=== PATIENT | female | born 1985 | race Caucasian/White ===

== ENCOUNTER 2020-06-20 10:07 | Emergency (ER) | payer MEDICARE, OTHER ==
[2020-06-20 12:55] LABS: CORONAVIRUS 2019 SARS-COV-2 NEGATIVE (NEGATIVE); INFLUENZA A NAA NEGATIVE (NEGATIVE)
[2020-06-20] MEDS ORDERED: HYDROCODONE-CH473 ML PO (13:42)
== END 2020-06-20 14:10 | disposition home or self-care (01) ==
LOC: FER 10:07
PROVIDERS: Emergency Medicine
DX: J06.9 Acute upper respiratory infection, unspecified (principal); E11.65 Type 2 diabetes mellitus with hyperglycemia; Z88.2 Allergy status to sulfonamides; Z88.0 Allergy status to penicillin; Z20.822 Contact with and (suspected) exposure to COVID-19
CPT/HCPCS: 71046; U0002

== ENCOUNTER 2020-08-04 17:56 | Emergency (ER) | payer MEDICARE, OTHER ==
[~2020-08-04 17:56] MED LIST: HYDROCODONE-CH473 ML PO
[2020-08-04 19:27] LABS: BASOPHIL 1.1 % (0-2); EOSINOPHIL 3.2 % (0-5); HCT 36.5 % (37.0-47.0); HGB 11.9 g/dl (12.5-16.0); LYMPHOCYTE 41.2 % (15-48); MCH 30.1 pg (25.0-31.0); MCHC 32.6 g/dL (32.0-36.0); MCV 92.4 fL (78.0-100.0); MONOCYTE 6.5 % (0-12); MPV 13.2 fL (6.0-9.5); NEUTROPHIL 47.7 % (41-80); NRBC 0; PLT 197 K/uL (150-400); RBC 3.95 M/uL (4.20-5.40); RDW 14.6 % (11.5-14.0); WBC 6.2 K/uL (4.0-10.5)
[2020-08-04 20:15] LABS: ALBUMIN 2.9 g/dL (3.4-5.0); BILIRUBIN - TOTAL 0.2 mg/dL (0.2-1.0); BUN/CREAT RATIO (CALC) 25.2 RATIO; CREATININE 1.11 mg/dL (0.51-0.95); GLOBULIN (CALCULATION) 3.3 g/dL; POTASSIUM 4.4 mmol/L (3.5-5.1); TOTAL PROTEIN 6.2 g/dL (6.4-8.2)
[2020-08-04 21:04] LABS: BILIRUBIN NEGATIVE (NEGATIVE); BLOOD NEGATIVE Ery/uL (NEGATIVE); CLARITY CLEAR (CLEAR); COLOR YELLOW (YELLOW); GLUCOSE (U) 3+ mg/dL (NORMAL); LEUKOCYTES NEGATIVE Leu/uL (NEGATIVE); NITRITE NEGATIVE (NEGATIVE); PROTEIN NEGATIVE (NEGATIVE); SPECIFIC GRAVITY 1.025 (1.001-1.030); UROBILINOGEN 0.2 mg/dL (0.2-1.0); pH 5.5 (5.0-9.0)
[2020-08-04] MEDS ORDERED: PROAIR HFA8.5 GM INH (21:51)
[2020-08-04] MEDS ORDERED: TESSALON PERLE100 MG PO (21:51)
== END 2020-08-04 22:25 | disposition home or self-care (01) ==
LOC: FER 17:56
PROVIDERS: Nurse Practitioner Family
DX: J98.01 Acute bronchospasm (principal); E11.65 Type 2 diabetes mellitus with hyperglycemia; Z88.0 Allergy status to penicillin; Z88.2 Allergy status to sulfonamides; Z88.8 Allergy status to other drugs, medicaments and biological substances; Z20.822 Contact with and (suspected) exposure to COVID-19
CPT/HCPCS: 36415; 71250; 80053; 81003; 82009; 84484; 85025; 85379; 93005; U0002

== ENCOUNTER 2020-10-09 14:03 | Emergency (ER) | payer MEDICARE, OTHER ==
[~2020-10-09 14:03] MED LIST changes: +PROAIR HFA8.5 GM INH; +TESSALON PERLE100 MG PO
[2020-10-09] MEDS ORDERED: CYCLOBENZAPRINE10 MG PO (15:26)
[2020-10-09] MEDS ORDERED: NAPROXEN500 MG PO (15:26)
== END 2020-10-09 16:10 | disposition home or self-care (01) ==
LOC: FER 14:03
DX: S39.012A Strain of muscle, fascia and tendon of lower back, initial encounter (principal); H54.7 Unspecified visual loss; Z88.0 Allergy status to penicillin; W19.XXXA Unspecified fall, initial encounter
CPT/HCPCS: 72110; J1885

== ENCOUNTER 2021-07-04 11:54 | Emergency (ER) | payer OTHER ==
[~2021-07-04 11:54] MED LIST changes: +CYCLOBENZAPRINE10 MG PO; +NAPROXEN500 MG PO
[2021-07-04 13:19] LABS: CORONAVIRUS 2019 SARS-COV-2 NEGATIVE (NEGATIVE); INFLUENZA A NAA NEGATIVE (NEGATIVE)
[2021-07-04] MEDS ORDERED: [UNRECOGNIZED DRUG - OTHER] PO (13:46)
[2021-07-04] MEDS ORDERED: MEDROL 4MG DOSEP4 MG PO (13:46)
== END 2021-07-04 14:21 | disposition home or self-care (01) ==
LOC: FER 11:54
PROVIDERS: Nurse Practitioner Family
DX: J20.9 Acute bronchitis, unspecified (principal); E11.9 Type 2 diabetes mellitus without complications; Z88.0 Allergy status to penicillin; Z88.2 Allergy status to sulfonamides; Z91.048 Other nonmedicinal substance allergy status; Z20.822 Contact with and (suspected) exposure to COVID-19
CPT/HCPCS: 71045; 87880; J1100; U0002

== ENCOUNTER 2021-10-05 11:34 | Emergency (ER) | payer MEDICARE, OTHER ==
[~2021-10-05 11:34] MED LIST changes: +MEDROL 4MG DOSEP4 MG PO; +ONDANSETRON ODT4 MG PO; +OXY-IR 5MG5 MG PO; +[UNRECOGNIZED DRUG - OTHER] PO
[2021-10-05 12:37] LABS: BASOPHIL 0.8 % (0-2); EOSINOPHIL 3.2 % (0-5); HCT 35.1 % (37.0-47.0); HGB 11.6 g/dl (12.5-16.0); LYMPHOCYTE 34.3 % (15-48); MCH 29.4 pg (25.0-31.0); MCV 88.9 fL (78.0-100.0); NEUTROPHIL 56.5 % (41-80); NRBC 0; PLT 239 K/uL (150-400); RBC 3.95 M/uL (4.20-5.40); RDW 14.3 % (11.5-14.0); WBC 6.2 K/uL (4.0-10.5)
[2021-10-05 12:43] LABS: BILIRUBIN NEGATIVE (NEGATIVE); BLOOD NEGATIVE Ery/uL (NEGATIVE); CLARITY CLEAR (CLEAR); COLOR YELLOW (YELLOW); GLUCOSE (U) 3+ mg/dL (NORMAL); LEUKOCYTES NEGATIVE Leu/uL (NEGATIVE); NITRITE NEGATIVE (NEGATIVE); PROTEIN 1+ mg/dL (NEGATIVE); UROBILINOGEN 0.2 mg/dL (0.2-1.0)
[2021-10-05 12:48] LABS: CREATININE 1.12 mg/dL (0.51-0.95); POTASSIUM 4.4 mmol/L (3.5-5.1)
[2021-10-05 12:50] LABS: BACTERIA 3+; MUCOUS TRACE; URINARY RBC RARE; YEAST PRESENT
[2021-10-05] MEDS ORDERED: MACROBID100 MG PO (14:23)
[2021-10-05] MEDS ORDERED: NORCO 5-325 TA1 EACH PO (14:23)
[2021-10-05] MEDS ORDERED: ONDANSETRON ODT4 MG PO (14:50)
== END 2021-10-05 15:46 | disposition home or self-care (01) ==
LOC: FER 11:34
PROVIDERS: Nurse Practitioner Family
DX: N20.0 Calculus of kidney (principal); K59.00 Constipation, unspecified; E10.9 Type 1 diabetes mellitus without complications; Z88.0 Allergy status to penicillin; Z88.1 Allergy status to other antibiotic agents
CPT/HCPCS: 36415; 80048; 81001; 85025; J0696; J1885; J2270; J2405; J7030